=== PATIENT | female | born 1950 | race Caucasian/White ===

== ENCOUNTER 2016-06-14 22:13 | Emergency (ER) | payer MEDICARE, MEDICAID ==
--- NOTE | 2016-06-14 22:35 | Emergency Department Record ---
History of Present Illness - General Chief complaint: Dental Stated complaint: DENTAL PAIN Time Seen by Provider: 06/14/16 22:28 Source: Patient Mode of Arrival: Ambulatory - History of Present Illness Initial comments: The patient has has right upper tooth pain with local swelling for 24 hours without fevers chills, arevalo. She has no money until she gets her SS check in her bank account on Thursday06-16-16. She is requesting medication for tomorrow, Thursday, to take home. She has no dentist. MD complaint: Tooth pain Onset/Timin -: Days(s) Severity scale (1-10): 10 Improves with: None Worsens with: None - Related Data Previous Rx's Medication Instructions Recorded Hydrocodone/Acetaminophen [[place] 1 tab PO Q6H PRN #4 tab 06/14/16 5mg/325mg] Penicillin V Potassium 500 mg PO Q6H #39 tab 06/14/16 Allergies Allergy/AdvReac Type Severity Reaction Status Date / Time Sulfa (Sulfonamide Allergy HIVES Verified 06/14/16 22:25 Antibiotics) Travel Screening - Travel/Exposure Within Last 30 Days Have you traveled within the last 30 days?: No - Travel/Exposure Within Last Year Have you traveled outside the [place] in the last year?: No - Additonal Travel Details Have you been exposed to anyone with a communicable illness?: No - Travel Symptoms Symptom Screening: None Review of Systems Reviewed: No additional complaints except as noted below Constitutional: Reports: As per HPI. Denies: Chills, Fever, Malaise, Night sweats, Weakness, Weight change Eyes: Reports: As per HPI. Denies: Eye discharge, Eye pain, Photophobia, Vision change ENT: Reports: As per HPI. Denies: Congestion, Dental pain, Ear pain, Epistaxis , Hearing loss, Throat pain Respiratory: Reports: As per HPI. Denies: Cough, Dyspnea, Hemoptysis, Stridor, Wheezes Cardiovascular: Reports: As per HPI. Denies: Arrhythmia, Chest pain, Dyspnea on exertion, Edema, Murmurs, Orthopnea, Palpitations, Paroxysmal nocturnal dyspnea, Rheumatic Fever, Syncope Endocrine: Reports: As per HPI. Denies: Fatigue, Heat or cold intolerance, Polydipsia, Polyuria Gastrointestinal: Reports: As per HPI. Denies: Abdominal pain, Constipation, Diarrhea, Hematemesis, Hematochezia, Melena, Nausea, Vomiting Genitourinary: Reports: As per HPI. Denies: Abnormal menses, Discharge, Dyspareunia, Dysuria, Frequency, Hematuria, Incontinence, Retention, Urgency Musculoskeletal: Reports: As per HPI. Denies: Arthralgia, Back pain, Gout, Joint swelling, Myalgia, Neck pain Skin: Reports: As per HPI. Denies: Bruising, Change in color, Change in hair/ nails, Lesions, Pruritus, Rash Neurological: Reports: As per HPI. Denies: Abnormal gait, Confusion, Headache, Numbness, Paresthesias, Seizure, Tingling, Tremors, Vertigo, Weakness Psychiatric: Reports: As per HPI. Denies: Anxiety, Auditory hallucinations, Depression, Homicidal thoughts, Suicidal thoughts, Visual hallucinations Hematological/Lymphatic: Reports: As per HPI. Denies: Anemia, Blood Clots, Easy bleeding, Easy bruising, Swollen glands Past Medical History - SOCIAL HISTORY Smoking Status: Current every day smoker Alcohol Use: None Drug Use: None - RESPIRATORY Hx Respiratory Disorders: No - CARDIOVASCULAR Hx Cardio Disorders: Yes Hx Hypertension: Yes - NEURO Hx Neuro Disorders: No - GI Hx GI Disorders: No - Hx Genitourinary Disorders: No - ENDOCRINE Hx Endocrine Disorders: No - MUSCULOSKELETAL Hx Musculoskeletal Disorders: No - PSYCH Hx Psych Problems: No - HEMATOLOGY/ONCOLOGY Hx Hematology/Oncology Disorders: Yes Hx Cancer: Yes (Ovaries removed.) Family Medical History Any Significant Family History?: No Physical Exam - General General Appearance: Alert, Oriented x3, Cooperative, Moderate distress - Head Head exam: Normal inspection - Eye Eye exam: Normal appearance, PERRL Pupils: Normal accommodation - ENT ENT exam: Normal exam, Mucous membranes moist, Normal external ear exam, Normal orophraynx, TM's normal bilaterally Ear exam: Normal external inspection. negative: External canal tenderness Nasal Exam: Normal inspection. negative: Discharge, Sinus tenderness Mouth exam: Normal external inspection, Tongue normal Teeth exam: Normal inspection, Dental caries (overall dental decay with numerous absent teeth), Dental tenderness # (tooth #5 with localized swelling into right upper lip and cheek) Throat exam: Normal inspection. negative: Tonsillar erythema, Tonsillar exudate - Neck Neck exam: Normal inspection, Full ROM. negative: Lymphadenopathy, Meningismus , Tenderness - Respiratory Respiratory exam: Normal lung sounds bilaterally. negative: Respiratory distress - Cardiovascular Cardiovascular Exam: Regular rate, Normal rhythm, Normal heart sounds - GI/Abdominal GI/Abdominal exam: Soft, Normal bowel sounds. negative: Tenderness - Rectal Rectal exam: Deferred - exam: Deferred - Extremities Extremities exam: Normal inspection, Full ROM, Normal capillary refill. negative: Tenderness - Back Back exam: Reports: Normal inspection, Full ROM. Denies: Muscle spasm, Rash noted, Tenderness - Neurological Neurological exam: Alert, Normal gait, Oriented X3, Reflexes normal - Psychiatric Psychiatric exam: Normal affect, Normal mood - Skin Skin exam: Dry, Intact, Normal color, Warm Course Vital Signs 06/14/16 22:16 Temperature 97.4 F L Pulse Rate 77 Respiratory 16 Rate Blood Pressure 164/80 Pulse Ox 96 Medical Decision Making - Management Options MDM Management: Additional Work-up Planned (e.g. ADM/Transfer/OP Study) (Dental referral given to patient) Disposition Disposition: Discharge Clinical Impression: Toothache Disposition: Home, Self-Care Condition: (1) Good Instructions: Dental Abscess (ED), Toothache (ED) Additional Instructions: Pen VK 500 mg tablets: take one 4 times daily until gone. [place] Take 1 every 6h hours if needed for pain. Dental referral--call numbers as instructed to follow up with dentist without fail. Prescriptions: Hydrocodone/Acetaminophen [[place] 5mg/325mg] 1 tab PO Q6H PRN #4 tab PRN Reason: Pain - General Penicillin V Potassium 500 mg PO Q6H #39 tab Forms: Patient Portal Access
[2016-06-14] MEDS: PENICILLIN V POTASSIUM 250 MG TAB PO ONE (22:47)
[2016-06-14] MEDS: HYDROCODONE/APAP 5/325MG TABLET PO ONE ×2 (22:49→22:50)
== END 2016-06-14 23:02 | disposition home or self-care (01) ==
LOC: ER 22:13
DX: K02.9 Dental caries, unspecified (principal)
CPT/HCPCS: 99282

== ENCOUNTER 2016-10-25 11:32 | Emergency (ER) | payer MEDICARE ==
--- NOTE | 2016-10-25 11:41 | Emergency Department Record ---
History of Present Illness - General Chief Complaint: Hypertension Stated Complaint: HIGH BLOOD PRESSURE Source: Patient Mode of Arrival: Ambulatory Limitations: No limitations - History of Present Illness Initial Comments: 65 yo female presents with a concern about elevated blood pressure. She woke up this morning with a blood pressure of 150/105. She is not having any symptoms currently. Thursday at about 4am she had about 30 minutes of a tightness in the chest with sweating while in bed. No return of chest discomfort since then. No cough. No leg swelling. No history of CAD. She does have a history of smoking and HTN. MD Complaint: Other (Elevated Blood Pressure) -: Days(s) Timing: Unsure Description: Other (chest tightness) History of Same: Yes (History of HTN) Improves With: Nothing Worsens With: Nothing Associated Symptoms: Other (chest tightness Thursday at 4am) - [place] Coma Scale Eye Response: (4) Open spontaneously Motor Response: (6) Obeys commands Verbal Response: (5) Oriented Elliot Total: 15 - Related Data Allergies Allergy/AdvReac Type Severity Reaction Status Date / Time Sulfa (Sulfonamide Allergy HIVES Verified 10/25/16 11:35 Antibiotics) Review of Systems Constitutional: Denies: Chills, Fever, Malaise, Weakness Eyes: Denies: Eye discharge ENT: Denies: Congestion, Ear pain, Throat pain Respiratory: Denies: Cough, Dyspnea, Hemoptysis, Stridor, Wheezes Cardiovascular: Reports: Chest pain. Denies: Palpitations, Syncope Endocrine: Denies: Fatigue, Polydipsia, Polyuria Gastrointestinal: Denies: Abdominal pain, Diarrhea, Nausea, Vomiting Genitourinary: Denies: Dysuria, Hematuria, Urgency Musculoskeletal: Denies: Arthralgia, Back pain, Myalgia, Neck pain Skin: Denies: Bruising, Change in color, Rash Neurological: Denies: Confusion, Headache, Numbness, Tingling, Tremors, Vertigo , Weakness Psychiatric: Denies: Anxiety Hematological/Lymphatic: Denies: Blood Clots, Easy bleeding, Easy bruising, Swollen glands Past Medical History - SOCIAL HISTORY Smoking Status: Current every day smoker Drug Use: None - RESPIRATORY Hx Respiratory Disorders: No - CARDIOVASCULAR Hx Cardio Disorders: Yes Hx Hypertension: Yes - NEURO Hx Neuro Disorders: No - GI Hx GI Disorders: No - Hx Genitourinary Disorders: No - ENDOCRINE Hx Endocrine Disorders: No - MUSCULOSKELETAL Hx Musculoskeletal Disorders: No - PSYCH Hx Psych Problems: No - HEMATOLOGY/ONCOLOGY Hx Hematology/Oncology Disorders: Yes Hx Cancer: Yes (Ovaries removed.) Physical Exam - General General Appearance: Alert, Oriented x3, Cooperative, No acute distress Limitations: No limitations - Head Head exam: Normal inspection - Eye Eye exam: Normal appearance, Conjunctival injection - ENT ENT exam: Normal exam Ear exam: Normal external inspection Nasal Exam: Normal inspection Mouth exam: Normal external inspection - Neck Neck exam: Normal inspection, Full ROM. negative: Tenderness - Respiratory Respiratory exam: Normal lung sounds bilaterally. negative: Accessory muscle use, Chest wall tenderness, Decreased breath sounds, Respiratory distress, Rhonchi, Stridor, Wheezes - Cardiovascular Cardiovascular Exam: Regular rate, Normal rhythm, Normal heart sounds Peripheral Pulses: 2+: Radial (R), Radial (L) - GI/Abdominal GI/Abdominal exam: Soft - Rectal Rectal exam: Deferred - exam: Deferred - Extremities Extremities exam: Normal inspection, Full ROM, Normal capillary refill. negative: Pedal edema, Tenderness - Back Back exam: Reports: Normal inspection, Full ROM. Denies: Muscle spasm, Rash noted, Tenderness - Neurological Neurological exam: Alert, Normal gait, Oriented X3 - Psychiatric Psychiatric exam: Normal affect, Normal mood - Skin Skin exam: Dry, Intact, Normal color, Warm Course - Reevaluation(s) Reevaluation #1: EKG 11:58 NSR rate of 60, Intervals normal, [place] LEFT, ST NS lateral depression/ changes, poor R wave progression.. No old. 10/25/16 12:25 Reevaluation #2: The labs and CXR were reviewed No acute changes The troponin is normal 10/25/16 13:03 10/25/16 13:04 BP 147/93 Reevaluation #3: [place] José Miguel barragan [place] [facility] The patient [place] [facility] [place]. 10/25/16 13:15 Reevaluation #4: I GLORIA Valdez he accepts the patient for [place] [facility] 10/25/16 13:34 Medical Decision Making - Lab Data Result diagrams: 10/25/16 12:05 10/25/16 12:05 Disposition Disposition: Transfer Clinical Impression: Hypertension Qualifiers: Hypertension type: unspecified secondary hypertension Qualified Code(s): I15.9 - Secondary hypertension, unspecified Chest pain Qualifiers: Chest pain type: unspecified Qualified Code(s): R07.9 - Chest pain, unspecified Disposition: Acute Care Hospital Transfer Transfer To: [facility] Reason For Transfer: Chest pain, hypertension Accepting Physician: José Miguel Time Discussed w/Accepting Physician: 13:34 Condition: (2) Stable Forms: Patient Portal Access Time of Disposition: 13:34 Quality - Quality Measures Quality Measures: N/A - Blood Pressure Screening View Details: Yes Blood Pressure Classification: Pre-Hypertensive BP Reading Systolic Measurement: 127 Diastolic Measurement: 81 Screening for High Blood Pressure: < Pre-Hypertensive BP, F/U Documented > [ [id number]] Pre-Hypertensive Follow-up Interventions: Referral to alternative/primary care provider.
[2016-10-25] MEDS ORDERED: ASPIRIN 325 MG TABLET PO ONE (11:52)
[2016-10-25 12:19] LABS: BASO % 0.4 % (0-6); EOS % 2.3 % (0-6); GRAN % 52.4 % (47-80); HEMATOCRIT 44.7 % (35.0-47.0); HEMOGLOBIN 15.2 gm/dl (11.6-16.0); LYMPH % 37.5 % (16-45); MEAN CELL VOLUME 91.2 fl (81-97); MEAN PLATELET VOLUME 9.3 fl (7.4-10.4); MONO % 7.4 % (0-9); PLATELET COUNT 239 K/uL (130-400); RED CELL DISTRIBUTION WIDTH 13.9 % (11.5-14.5); WHITE BLOOD COUNT W/O DIFF 7.9 K/uL (4.2-12.2)
[2016-10-25 12:29] LABS: ALB/GLOB RATIO 1.5 (1.1-1.8); ALBUMIN 4.4 gm/dL (3.5-5.0); ALKALINE PHOSPHATASE 73 U/L (38-126); ALT/SGPT 25 U/L (9-52); ANION GAP 11.4 (7-16); AST/SGOT 20 U/L (14-36); BILIRUBIN,TOTAL 0.77 mg/dL (0.2-1.3); BLOOD UREA NITROGEN 18 mg/dL (7-17); CARBON DIOXIDE 25.6 mmol/L (22-30); CREATINE PHOSPHOKINASE 61 U/L (30-135); CREATININE 0.7 mg/dL (0.52-1.04); EST GLOMERULAR FILTRATION RATE > 60 ml/min; GLUCOSE,RANDOM 104 mg/dL (70-110); TOTAL PROTEIN 7.3 gm/dL (6.3-8.2)
[2016-10-25 12:30] LABS: INR 0.88; PARTIAL THROMBOPLASTIN TIME 28.7 SECONDS (24.5-39.1)
[2016-10-25 12:42] LABS: CKMB 0.8 ug/L (0-6); TROPONIN I < 0.012 ng/mL (0.00-0.034)
--- NOTE | 2016-10-27 12:40 | RADIOLOGY REPORT ---
EXAM: CHEST, TWO VIEWS HISTORY: PAIN. TECHNIQUE: Frontal and lateral views of the chest were obtained. Comparison: None. FINDINGS: The heart size is normal. Atheromatous change of the thoracic aorta. Osteopenia. The lungs are clear. No pneumothorax. IMPRESSION: NO ACUTE CARDIOPULMONARY PROCESS. JOB NUMBER: [id number] MTDD
== END 2016-10-25 14:38 | disposition short-term general hospital (02) ==
LOC: ER 11:32
DX: R07.89 Other chest pain (principal); I10 Essential (primary) hypertension; Z87.891 Personal history of nicotine dependence
CPT/HCPCS: 71020; 80053; 82550; 82553; 83880; 84484; 85025; 85610; 85730; 93005; 93010; 99284

== ENCOUNTER 2018-05-12 18:07 | Emergency (ER) | payer MEDICARE, MEDICAID ==
[2018-05-12] MEDS ORDERED: AMIODARONE 360MG/200ML MAINT 360 MG/200 ML ML IV ONE (18:31)
[2018-05-12] MEDS ORDERED: AMIODARONE 150MG/100ML BOLUS 150 MG/100 ML ML IV ONE (18:31)
--- NOTE | 2018-05-12 18:46 | Emergency Department Record ---
History of Present Illness - General Chief Complaint: Hypertension Stated Complaint: BP HIGH Time Seen by Provider: 05/12/18 18:20 Source: Patient Mode of Arrival: Ambulatory Limitations: No limitations - History of Present Illness Initial Comments: The patient is here due to a one day hx of intermittent dizziness and lightheadedness with palpitations. She denies any pain during the episodes but is having EMELI when they occur. She may have passed out at home with it once or twice but denies any head or neck injury or PEREZ now. The patient does have a hx of CAD and does have one stent placed and does see Dr. Lowry at [facility] [place]. Complaint: Dizziness, Lightheadedness Onset/Timin -: Days(s) Timing: Gradual onset Description: Near-syncope History of Same: Yes (BP was high) History of Trauma: No Severity: Moderate Improves With: Nothing Worsens With: Nothing Associated Symptoms: Denies other symptoms - Elliot Coma Scale Eye Response: (4) Open spontaneously Motor Response: (6) Obeys commands Verbal Response: (5) Oriented Elliot Total: 15 - Related Data Home Medications Medication Instructions Recorded Confirmed Last Taken Aspirin [Aspir-Low] 81 mg PO DAILY 05/12/18 05/12/18 05/12/18 Atorvastatin Calcium [Lipitor] 20 mg PO DAILY 05/12/18 05/12/18 05/12/18 Clopidogrel Bisulfate [Clopidogrel] 75 mg PO DAILY 05/12/18 05/12/18 05/12/18 Metoprolol Tartrate 25 mg PO DAILY 05/12/18 05/12/18 05/12/18 Pantoprazole Sodium [Protonix] 40 mg PO DAILY 05/12/18 05/12/18 05/12/18 Allergies Allergy/AdvReac Type Severity Reaction Status Date / Time Sulfa (Sulfonamide Allergy HIVES Verified 05/12/18 18:11 Antibiotics) Travel Screening - Travel/Exposure Within Last 30 Days Have you traveled within the last 30 days?: No - Travel/Exposure Within Last Year Have you traveled outside the [place] in the last year?: No - Additonal Travel Details Have you been exposed to anyone with a communicable illness?: No - Travel Symptoms Symptom Screening: None Review of Systems Constitutional: Denies: Chills, Fever Eyes: Denies: Eye discharge ENT: Denies: Congestion Respiratory: Denies: Cough Cardiovascular: Reports: Arrhythmia, Dyspnea on exertion, Palpitations. Denies : Chest pain Endocrine: Denies: Fatigue Gastrointestinal: Denies: Nausea Genitourinary: Denies: Dysuria Musculoskeletal: Denies: Arthralgia Skin: Denies: Bruising Past Medical History - SOCIAL HISTORY Smoking Status: Former smoker Alcohol Use: None Drug Use: None - RESPIRATORY Hx Respiratory Disorders: No - CARDIOVASCULAR Hx Cardio Disorders: Yes Hx Hypertension: Yes - NEURO Hx Neuro Disorders: No - GI Hx GI Disorders: No - Hx Genitourinary Disorders: No - ENDOCRINE Hx Endocrine Disorders: No - MUSCULOSKELETAL Hx Musculoskeletal Disorders: No - PSYCH Hx Psych Problems: No - HEMATOLOGY/ONCOLOGY Hx Hematology/Oncology Disorders: Yes Hx Cancer: Yes (Ovaries removed.) Family Medical History Any Significant Family History?: No Physical Exam - General General Appearance: Alert, Oriented x3, Cooperative, No acute distress - Head Head exam: Atraumatic, Normocephalic, Normal inspection - Eye Eye exam: Normal appearance, PERRL, EOMI - ENT Throat exam: Normal inspection. negative: Tonsillar erythema, Tonsillar exudate - Neck Neck exam: Normal inspection, Full ROM. negative: Tenderness - Respiratory Respiratory exam: Normal lung sounds bilaterally. negative: Respiratory distress - Cardiovascular Cardiovascular Exam: Regular rate, Normal rhythm, Normal heart sounds. negative : Diastolic murmur, Systolic murmur - GI/Abdominal GI/Abdominal exam: Soft, Normal bowel sounds. negative: Tenderness - Extremities Extremities exam: Normal inspection, Full ROM, Normal capillary refill. negative: Tenderness - Neurological Neurological exam: Alert, Normal gait. negative: Abnormal gait, Motor sensory deficit - Psychiatric Psychiatric exam: negative: Anxious - Skin Skin exam: negative: Rash Course Vital Signs 05/12/18 18:17 Temperature 97.9 F Pulse Rate 55 L Respiratory 20 Rate Blood Pressure 148/97 Pulse Ox 98 - Reevaluation(s) Reevaluation #1: The patient is doing well at this time but did have 2 episodes of what appeared to be VT on the monitor. During both episodes the HR was around 180 with a wide complex tachycardia. They lasted 20-30 seconds and did resolved spontaneously. Due to that fact I did discus the case with Dr. Lowry at [facility] and he would like the patient transferred directly to [facility] to the ER. 05/12/18 18:44 Reevaluation #2: The patient is doing well at this time and her HR is stable. I did discuss the case with Dr. Saxena at the ER at [facility] and he does accept the patient in transfer. 05/12/18 18:52 Reevaluation #3: The patient was doing well during her ED stay. She had no rhythm issues the last 30 minutes in the ED. She had no CP, SOB, or EMELI and was resting comfortably on the Amiodarone drip. 05/12/18 19:18 Medical Decision Making - Data Complexity MDM Data: EKG Ordered and/or Reviewed - Lab Data Result diagrams: 05/12/18 18:25 05/12/18 18:25 - EKG Data -: EKG Interpreted by Me EKG: No Acute Changes, Unchanged From Previous Critical Care Time Critical Care Time: Yes Total Critical Care Time: 45 Critical Care Time: The patient had a total of 45 minutes of CC time and was in VT twice in the ED. Disposition Disposition: Transfer Clinical Impression: Ventricular tachycardia (paroxysmal) Disposition: Acute Care Hospital Transfer Transfer To: [facility] Reason For Transfer: Cardiology Accepting Physician: Hemanth Time Discussed w/Accepting Physician: 18:53 Condition: (2) Stable Forms: Patient Portal Access Time of Disposition: 18:53 Quality - Quality Measures Quality Measures: N/A - Blood Pressure Screening View Details: Yes Does Patient Have Any of the Following: Active Dx of HTN Blood Pressure Classification: Hypertensive Reading Systolic Measurement: 148 Diastolic Measurement: 97 Screening for High Blood Pressure: Patient Exclusion, Hx of HTN [G9744]
[2018-05-12 18:52] LABS: BASO % 0.3 % (0-6); EOS % 0.9 % (0-6); GRAN % 67.8 % (47-80); HEMATOCRIT 46.4 % (35.0-47.0); LYMPH % 25.2 % (16-45); MEAN CELL VOLUME 90.8 fl (81-97); MEAN CORPUSCULAR HEMOGLOBIN 29.4 pg (27-33); MEAN CORPUSCULAR HGB CONC 32.3 g/dl (32-36); MEAN PLATELET VOLUME 9.4 fl (7.4-10.4); MONO % 5.8 % (0-9); PLATELET COUNT 335 K/uL (130-400); RED BLOOD COUNT 5.11 M/uL (3.80-5.40); RED CELL DISTRIBUTION WIDTH 14.1 % (11.5-14.5)
[2018-05-12 18:56] LABS: BLOOD UREA NITROGEN 17 mg/dL (8-23); CREATININE 0.9 mg/dL (0.5-0.9); EST GLOMERULAR FILTRATION RATE > 60 mL/min
[2018-05-12 18:57] LABS: TOTAL PROTEIN 7.8 g/dL (6.6-8.7)
[2018-05-12 18:59] LABS: GLUCOSE,RANDOM 127 mg/dL (74-109)
[2018-05-12 19:01] LABS: ALB/GLOB RATIO 1.2 (1.1-1.8); ALBUMIN 4.3 g/dL (4.0-5.0); ALKALINE PHOSPHATASE 87 U/L (45-87); ALT/SGPT 12 U/L (<33); AST/SGOT 13 U/L (10.0-35.0); CREATINE PHOSPHOKINASE 52 U/L (26-192)
[2018-05-12 19:03] LABS: PARTIAL THROMBOPLASTIN TIME 33.2 SECONDS (24.5-39.1)
[2018-05-12 19:04] LABS: CKMB 1.1 ng/mL (<3.77)
[2018-05-12 19:14] LABS: THYROID STIMULATING HORMONE 2.38 uIU/mL (0.270-4.20)
--- NOTE | 2018-05-14 12:42 | RADIOLOGY REPORT ---
EXAM: CHEST, ONE VIEW HISTORY: HYPERTENSION, SYNCOPE. TECHNIQUE: AP view of the chest was obtained. Comparison: 10/25/16. FINDINGS: The cardiac silhouette is normal in size. Defibrillator pad projects over the chest. The pulmonary vasculature is not overly congested. There is calcification in the aorta. The lung volumes are low. The lung bases are not well assessed due to low volumes and AP position. No focal consolidation, pleural effusion or pneumothorax is evident. IMPRESSION: NO EVIDENCE FOR ACUTE CARDIOPULMONARY PROCESS. JOB NUMBER: [id number] [facility]
== END 2018-05-12 19:26 | disposition short-term general hospital (02) ==
LOC: ER 18:07
DX: I47.2 Ventricular tachycardia (principal); R55 Syncope and collapse; R06.00 Dyspnea, unspecified; I25.10 Atherosclerotic heart disease of native coronary artery without angina pectoris; I10 Essential (primary) hypertension; Z95.5 Presence of coronary angioplasty implant and graft; Z87.891 Personal history of nicotine dependence
CPT/HCPCS: 71045; 80053; 82550; 82553; 83880; 84443; 84484; 85025; 85610; 85730; 93005; 93010; 96365; 96375; 99291